=== PATIENT | male | born 1950 | race Caucasian/White ===

== ENCOUNTER 2018-06-05 06:23 | Day surgery (SDC) | payer MEDICARE, BC ==
[~2018-06-05] VITALS: Ht 182.9 cm; Wt 98.2 kg
[2018-06-05] MEDS ORDERED: SODIUM CHLORIDE 0.9% 1,000 ML IV SCH (06:44)
[2018-06-05 06:57] VITALS: BP 153/96
[2018-06-05] MEDS ORDERED: CEFAZOLIN PMX 1GM/50ML 50 ML IVPB ONE (07:00)
[2018-06-05] MEDS ORDERED: WARF4TAB65 PO (07:11)
[2018-06-05] MEDS ORDERED: METF500T17 PO (07:11)
[2018-06-05] MEDS ORDERED: LISI-170 PO (07:11)
[2018-06-05] MEDS ORDERED: DIGO125T PO (07:11)
[2018-06-05] MEDS ORDERED: UBID100C41 PO (07:11)
[2018-06-05] MEDS ORDERED: LABE200T6 PO (07:11)
[2018-06-05] MEDS ORDERED: DULA1.5P SC (07:11)
[2018-06-05] MEDS ORDERED: HYDR25TA6 PO (07:11)
[2018-06-05] MEDS ORDERED: ATOR40TA78 PO (07:11)
[2018-06-05] MEDS ORDERED: INSU100V8 SQ (07:11)
[2018-06-05] MEDS ORDERED: AMLO5TAB7 PO (07:11)
[2018-06-05] MEDS ORDERED: CHOL200085 PO (07:11)
[2018-06-05] MEDS ORDERED: OMEG-76 PO (07:11)
[2018-06-05] MEDS ORDERED: MIDAZOLAM 1 MG/ML, 5ML ONE (08:07)
[2018-06-05] MEDS ORDERED: LIDOCAINE/PF 1%, 30ML ONE (08:07)
[2018-06-05] MEDS ORDERED: CEFAZOLIN PMX 1GM/50ML 50 ML ONE (08:07)
[2018-06-05] MEDS ORDERED: FENTANYL PF 100 MCG/2ML ONE (08:07)
[2018-06-05] MEDS ORDERED: CEFAZOLIN 1,000 MG ONE (08:07)
[2018-06-05] MEDS ORDERED: INSULIN GLARGINE HUM REC ANLOG 50 UNIT SQ SCH (09:30)
[2018-06-05] MEDS ORDERED: ACETAMINOPHEN 325 MG TABLET PO PRN (09:30)
[2018-06-05] MEDS ORDERED: TEMPLATE NON-FORMULARY MED. (Dulaglutide (Trulicity) 0.5 ML) SC SCH (09:30)
[2018-06-05] MEDS ORDERED: ATORVASTATIN 40 MG TABLET PO SCH (21:00)
[2018-06-05] MEDS ORDERED: LABETALOL 200 MG TABLET PO SCH (21:00)
[2018-06-05] MEDS ORDERED: metFORMIN 500 MG TABLET PO SCH (21:00)
[2018-06-06] MEDS ORDERED: AMLODIPINE BESYLATE 10 MG PO SCH (09:00)
[2018-06-06] MEDS ORDERED: DHA PO SCH (09:00)
[2018-06-06] MEDS ORDERED: DIGOXIN 0.125 MG TABLET PO SCH (09:00)
[2018-06-06] MEDS ORDERED: D3 PO SCH (09:00)
[2018-06-06] MEDS ORDERED: TEMPLATE NON-FORMULARY MED. (Ubidecarenone** (Co Q-10**) 100 MG) PO SCH (09:00)
[2018-06-06] MEDS ORDERED: OMEGA PO SCH (09:00)
[2018-06-06] MEDS ORDERED: EPA PO SCH (09:00)
[2018-06-06] MEDS ORDERED: FISH OIL PO SCH (09:00)
[2018-06-06] MEDS ORDERED: CHOLECALCIFEROL 500 UNIT PO SCH (09:00)
[2018-06-06] MEDS ORDERED: LISINOPRIL 20 MG TABLET PO SCH (09:00)
[2018-06-06] MEDS ORDERED: TEMPLATE NON-FORMULARY MED. (Warfarin Sodium** 4 MG) PO SCH (09:00)
[2018-06-06] MEDS ORDERED: HYDROCHLOROTHIAZIDE 25 MG TABLET PO SCH (09:00)
[2018-06-06] MEDS ORDERED: [UNRECOGNIZED DRUG - OTHER] PO SCH (09:00)
== END 2018-06-05 11:28 | disposition home or self-care (01) ==
LOC: CACL 06:23
PROVIDERS: ATTEND Internal Medicine Cardiovascular Disease
DX: Z45.010 Encounter for checking and testing of cardiac pacemaker pulse generator [battery] (principal); I48.2 Chronic atrial fibrillation; I10 Essential (primary) hypertension; Z88.8 Allergy status to other drugs, medicaments and biological substances; Z79.899 Other long term (current) drug therapy; Z98.890 Other specified postprocedural states
CPT/HCPCS: 33228; 99156; C1785; J0690; J2250; J3010; J3490